=== PATIENT | male | born 1980 | race Caucasian/White ===

== ENCOUNTER 2022-10-15 02:17 | Emergency (ER) | payer BC, SELFPAY ==
[2022-10-15] VITALS (14 sets, daily range): BP systolic 114–155; BP diastolic 75–96; PULSE 82–103; RESP 16–20; TEMP 36.6; O2SAT 97–98; BMI 37.1
--- NOTE | 2022-10-15 02:39 | CRLHL7_ITS ---
For Patients: As a result of the Cures Act, medical imaging exams and procedure reports are released immediately into your electronic medical record. You may view this report before your referring provider. If you have questions, please contact your health care provider. INDICATION: Chest tightness TECHNIQUE: Chest radiograph 2 views COMPARISON: 06/20/2019 FINDINGS: Mediastinum: The mediastinum is normal in appearance. The heart silhouette is normal in size and morphology. Lung: Both lungs are unremarkable in appearance. Both apices are partially excluded. No sign of pleural effusion seen. No pneumothorax is identified. Bone and Soft tissue: Unremarkable for age. IMPRESSION: 1. No acute cardiopulmonary disease is seen. Dictated by: Mathew Santiago MD @ 10/15/2022 03:15:30 (Electronically Signed)
[2022-10-15] MEDS: ASPIRIN 81 MG TAB.CHEW 162 MG PO (02:47)
[2022-10-15] MEDS: FAMOTIDINE 20 MG TABLET PO (02:48)
[2022-10-15 02:55] LABS: Basophils Absolute Auto 0.02 K/uL (0.00-0.30); Basophils Percent Auto 0.4 % (0.0-3.0); Eosinophils Percent Auto 2.1 % (0.0-7.0); Hematocrit 43.9 % (37.0-53.0); Hemoglobin* 14.9 gm/dL (13.5-17.5); Immature Granulocytes Abs Auto 0.05 K/uL (0.00-0.30); Immature Granulocytes Pct Auto 1.1 %; Lymphocytes Absolute Auto 1.82 K/uL (0.90-2.90); Lymphocytes Percent Auto 38.3 % (20-44); Mean Corpuscular HGB Conc 34 gm/dL (32-36); Mean Corpuscular Hemoglobin 27 pg (26-34); Mean Corpuscular Volume 79 fL (80-100); Monocytes Percent Auto 9.7 % (0.0-11.0); Neutrophils Percent Auto 48.4 % (42.0-72.0); Platelet Count* 119 K/uL (140-440); RDW Coefficient of Variation % 12.6 % (11.5-15.5); Red Blood Count 5.55 m/uL (4.30-5.90); White Blood Count* 4.75 K/uL (4.50-11.00)
[2022-10-15 03:03] LABS: Troponin, Point-of-Care* 0.06 ng/ml (0.01-0.04)
[2022-10-15 03:06] LABS: Slide Review Reflex No
[2022-10-15 03:07] LABS: Chloride* 103 mmol/L (96-114); Sodium* 138 mmol/L (135-149)
[2022-10-15 03:08] LABS: Potassium* 3.5 mmol/L (3.6-5.1)
[2022-10-15 03:10] LABS: Anion Gap 9 mEq/L (7-15); Carbon Dioxide* 26 mmol/L (20-32); Creatinine* 0.8 mg/dL (0.5-1.5); Est. Creatinine Clearance* 146.17; Estimated Glomerular Filt Rate 113 ml/min
[2022-10-15 03:11] LABS: Blood Urea Nitrogen* 14 mg/dL (5-24); Calcium* 8.7 mg/dL (8.4-10.6); Glucose* 229 mg/dL (60-115)
[2022-10-15 03:15] LABS: C Reactive Protein* 0.7 mg/dL (0.5-1.0)
[2022-10-15 03:16] LABS: D Dimer Quantitative* 0.44 ug/ml (0.00-0.50)
--- NOTE | 2022-10-15 03:19 | ED_ITS ---
HPI - General Adult General Chief complaint: Chest Pain Stated complaint: Chest Feels tight Time Seen by Provider: 10/15/22 02:30 Source: patient Mode of arrival: ambulatory Limitations: no limitations History of Present Illness HPI narrative: 41-year-old male presents the emergency department with a 2 week history of intermittent chest tightness. Accompanied by a slight sensation of shortness of breath, sometimes happens at rest, sometimes more on exertion. Seems to be getting more frequent and intense over the last 2 weeks. No trauma or injury. Originally noticed it when he was vacationing at a cabin/like vacation with his family in [place] a couple of weeks ago. He now notices that while playing with his kids, worse when taking a deep breath, feels like he cannot catch his breath. Tonight, he woke up about 60-90 minutes prior to arrival with feeling of chest tightness accompanied by a feeling that he could not take a full deep breath. No palpitations, racing heart or radiation. No swelling in his legs, no history of DVT. He reports that he was evaluated for something similar about a year ago, sounds like the workup was normal. He believes he has even had a stress test but does not remember necessarily when. It may have only been a year ago but it could have been longer, these records are not through our health system. He does have a family history of heart disease in both parents around age 60. No fevers or recent acute illness. No use of blood thinners. He his other risk factors for heart disease include diabetes. He does take a statin. No history of hypertension. Has not tried any home remedies or interventions to help with his symptoms. Past medical history notable for type 2 diabetes, [id number]. Allergies are to Trulicity and sulfas. Sound like the Trulicity was an intolerance. Nonsmoker. Family history noted as above. Medications Jardiance, metformin, glipizide. ROS notable for the respiratory, cardiac in generalized symptoms as described above, otherwise denies times 12 systems. Related Data Home Medications Medication Instructions Recorded Confirmed empagliflozin 10 mg tablet 10 mg PO DAILY 10/15/22 10/15/22 (Jardiance) glipizide 10 mg tablet, extended 10 mg PO BID 10/15/22 10/15/22 release 24 hr metformin 1,000 mg tablet 1,000 mg PO BID 10/15/22 10/15/22 Allergies Allergy/AdvReac Type Severity Reaction Status Date / Time dulaglutide [From [facility]] AdvReac sulfa burps Verified 10/15/22 03:37 Sulfa (Sulfonamide AdvReac Verified 10/15/22 03:37 Antibiotics) [facility] Medical History (Updated 10/15/22 @ 05:20 by Steph Berumen MD) Pedal edema ?R60.0 - Localized edema (ICD-10) SHYANNE (obstructive sleep apnea) ?G47.33 - Obstructive sleep apnea (adult) (pediatric) (ICD-10) Anxiety and depression ?F41.9 - Anxiety disorder, unspecified (ICD-10) ?F32.A - Depression, unspecified (ICD-10) High triglycerides ?E78.1 - Pure hyperglyceridemia (ICD-10) Diabetes ?E11.9 - Type 2 diabetes mellitus without complications (ICD-10) Surgical History (Updated 10/15/22 @ 03:39 by Clementina Simental RN) History of tonsillectomy and adenoidectomy ?Z90.89 - Acquired absence of other organs (ICD-10) Hx of appendectomy ?Z90.49 - Acquired absence of other specified parts of digestive tract (ICD- 10) Social History Smoking Status: Never smoker Do you use any of these nicotine containing products: None How often do you have a drink containing alcohol: never AUDIT-C Alcohol total score: 0 Non-prescribed substance use: denies use Exam Const: Vital Signs, click to edit/add: Vital Signs - 24 hr 10/15/22 02:23 10/15/22 02:55 10/15/22 03:36 Temperature 97.8 F Pulse Rate 102 H Pulse Rate [Left P ulse Oximeter] 103 H Respiratory Rate 20 16 Blood Pressure 135/82 126/82 Blood Pressure [Ri ght Upper Arm] 155/95 H Pulse Oximetry 98 98 98 Oxygen Delivery Me thod Room Air 10/15/22 03:52 10/15/22 03:57 10/15/22 04:02 Temperature Pulse Rate 101 H Pulse Rate [Left P ulse Oximeter] Respiratory Rate 16 Blood Pressure 120/81 128/84 124/78 Blood Pressure [Ri ght Upper Arm] Pulse Oximetry Oxygen Delivery Me thod 10/15/22 04:07 10/15/22 04:11 10/15/22 04:17 Temperature Pulse Rate 82 84 Pulse Rate [Left P ulse Oximeter] Respiratory Rate 16 Blood Pressure 119/79 120/77 122/75 Blood Pressure [Ri ght Upper Arm] Pulse Oximetry Oxygen Delivery Me thod 10/15/22 04:22 10/15/22 04:27 10/15/22 04:41 Temperature Pulse Rate 82 86 89 Pulse Rate [Left P ulse Oximeter] Respiratory Rate 16 Blood Pressure 120/78 114/96 H 118/82 Blood Pressure [Ri ght Upper Arm] Pulse Oximetry 98 Oxygen Delivery Me thod Common normals: no apparent distress General appearance: cooperative, comfortable and well kempt Other: Good historian. HENMT: Common normals: normocephalic Head and scalp: normocephalic Face and sinus: normal facial exam Mouth: oral and palatal mucosa normal Throat: posterior oropharynx normal Eye: Common normals: conjunctivae normal Conjunctiva: conjunctiva(e) normal Neck & C-Spine: Common normals: full ROM and no lymphadenopathy Resp: Common normals: normal respiratory effort, no use of accessory muscles and clear to auscultation bilaterally Effort & inspection: able to speak in complete sentences Auscultation: clear to auscultation bilaterally Cardio: Common normals: regular rate, regular rhythm, S1 normal heart sound, S2 normal heart sound and no murmurs Rate: regular rate Rhythm: regular rhythm Heart sounds: S1 normal and S2 normal GI: Common normals: Normal to inspection, nondistended, normoactive bowel sounds present, soft to palpation, non-tender, no hepatosplenomegaly and no masses Palpation: soft and no hepatosplenomegaly Extremity: Common normals: normal to inspection, full ROM, normal capillary refill and no pedal edema Neuro: Speech: speech normal Gait (neuro): normal gait Motor exam: strength 5/5 throughout and no movement abnormalities noted Psych: Appearance: well kempt Attitude: engaged Activity/motor behavior: appropriate eye contact Mood and affect: euthymic mood Insight: insight good Judgement: judgment good Skin: Common normals: no rashes or lesions noted General skin exam: no rashes or lesions noted Course Course Hospital Course: Differential diagnosis including pulmonary embolism, acute coronary syndrome, arrhythmia, musculoskeletal etiology, gastric reflux, among others. Recommend troponin, chest x-ray, basic labs, D-dimer, aspirin and trial of famotidine. If this is not successful, consider trial of nitroglycerin. Anticipate repeat troponin at 90 minutes with repeat EKG. High risk for cardiac disease due to family history, diabetes and hyperlipidemia. Reevaluation(s) Time of Reevaluation #1: 03:47 Reevaluation #1: Pain stable, no improvement on famotidine an aspirin. Counseled on results of initial EKG, chest x-ray and labs. Indeterminate troponin worrisome in the set ting of his risk factors and the fact that there really is no other underlying explanation like pulmonary embolism, kidney disease, etc.. Await repeat troponin and performed trial of nitroglycerin challenge to see if this improves his symptoms. Time of Reevaluation #2: 04:33 Reevaluation #2: Repeat EKGs performed with normal sinus rhythm rate of 85. Still no ischemic changes. Normal axis. Good R-wave progression, normal ST and T-waves. He did not get improvement of his symptoms of chest tightness with the use of the nitroglycerin. It did however give him a mild headache which is not unexpected. Time of Reevaluation #3: 05:20 Reevaluation #3: Repeat troponin is 0.05 which is essentially stable. I spoke with Dr. Castillo from cardiology, enquiring specifically if this patient should be referred for an outpatient angiogram or if he should have a repeat stress test. He agrees that based on the patient's risk factors and lack of EKG changes with borderline troponins, he is a good candidate for a stress test. I placed an order for this and advised the patient that he is welcome to schedule it through his primary care provider if this is preferred as well. Exercise nuclear type stress test recommended. Patient was counseled on alarm symptoms that would warrant repeat ED presentation. I have encouraged him to take an aspirin 81 mg once daily up until the stress test. No heavy exertion until after the stress test but typical activities of daily living are of course encouraged. Continue all other medications as prescribed. He verbalizes understanding and agreement Vital Signs Vital signs: Initial Vital Signs Temperature 97.8 F 10/15/22 02:23 Temperature Source Temporal Artery Scan 10/15/22 02:23 Pulse Rate 103 H 10/15/22 02:23 Respiratory Rate 20 10/15/22 02:23 Blood Pressure 155/95 H 08/30/23 02:23 Blood Pressure Mean 115 H 10/15/22 02:23 Blood Pressure Position Sitting 10/15/22 02:23 Pulse Oximetry 98 10/15/22 02:23 Oxygen Delivery Method Room Air 10/15/22 02:23 Vital Signs Temperature 97.8 F 10/15/22 02:23 Pulse Rate 103 H 10/15/22 02:23 Respiratory Rate 20 10/15/22 02:23 Blood Pressure 155/95 H 10/15/22 02:23 Pulse Oximetry 98 10/15/22 02:23 Oxygen Delivery Method Room Air 10/15/22 02:23 Temperature 97.8 F 10/15/22 02:23 Pulse Rate 89 10/15/22 04:41 Respiratory Rate 16 10/15/22 04:41 Blood Pressure 118/82 10/15/22 04:41 Pulse Oximetry 98 10/15/22 04:41 Oxygen Delivery Method Room Air 10/15/22 02:23 Medical Decision Making Lab Data Lab results reviewed: Yes I reviewed the patient's lab results Lab results narrative: Mild troponin elevation of undetermined significance. D-dimer and BNP reassuring. Normal electrolytes, kidney function. No signs of infection or dehydration. Labs: Lab Results 10/15/22 10/15/22 Range/Units 02:48 04:35 WBC 4.75 (4.50-11.00) K/uL RBC 5.55 (4.30-5.90) m/uL Hgb 14.9 (13.5-17.5) gm/dL Hct 43.9 (37.0-53.0) % MCV 79 L (80-100) fL MCH 27 (26-34) pg MCHC 34 (32-36) gm/dL RDW Coeff of Charlie 12.6 (11.5-15.5) % Plt Count 119 L (140-440) K/uL Neut % (Auto) 48.4 (42.0-72.0) % Lymph % (Auto) 38.3 (20-44) % [place] % (Auto) 9.7 (0.0-11.0) % Eos % (Auto) 2.1 (0.0-7.0) % Baso % (Auto) 0.4 (0.0-3.0) % Neut # (Auto) 2.30 (1.7-7.0) K/uL Lymph # (Auto) 1.82 (0.90-2.90) K/uL [place] # (Auto) 0.50 (0.00-0.90) K/UL Eos # (Auto) 0.10 (0.00-0.50) K/uL Baso # (Auto) 0.02 (0.00-0.30) K/uL Abs Immat Gran (auto) 0.05 (0.00-0.30) K/uL Imm/Tot Granulo (auto) 1.1 % D-Dimer Quant (PE/DVT) 0.44 (0.00-0.50) ug/ml Sodium 138 (135-149) mmol/L Potassium 3.5 L (3.6-5.1) mmol/L Chloride 103 (96-114) mmol/L Carbon Dioxide 26 (20-32) mmol/L Anion Gap 9 (7-15) mEq/L BUN 14 (5-24) mg/dL Creatinine 0.8 (0.5-1.5) mg/dL Estimated Creat Clear 146.17 Estimated GFR 113 ml/min Glucose 229 H (60-115) mg/dL Calcium 8.7 (8.4-10.6) mg/dL Troponin I 0.06 H* (0.01-0.04) ng/mL C-Reactive Protein 0.7 (0.5-1.0) mg/dL NT-Pro-B Natriuret Pep < 20 pg/mL POC Troponin I 0.06 H 0.05 H (0.01-0.04) ng/ml Imaging Data Chest x-ray: Attestation: I have reviewed the pertinent imaging results. My impression: Normal chest x-ray Radiologist's impression: IMPRESSION: 1. No acute cardiopulmonary disease is seen. ECG Data Attestation: I personally reviewed and interpreted this ECG as follows: Prior ECG tracings: not available for review Interpretation: Normal sinus rhythm, rate 100. There are a few PVCs. Overall has good R-wave progression, no ST or T-wave abnormalities, essentially normal EKG. Discharge Plan Discharge Clinical Impression: Chest pain Patient Disposition: Home, Self-Care Condition: Stable Instructions: Chest Pain (DC), Stress Echocardiogram (DC) Additional Instructions: As we discussed, your blood work, EKG, x-ray and heart monitors do not show any signs of a heart attack today. This is great news. There are also no signs of a blood clot, kidney disease, electrolyte abnormality or infection. Your blood tests do show some very slight abnormalities with the heart that could be related to the start of some gradual narrowing of the arteries that feed the heart. Often, we will see these changes long before an actual heart attack. These findings mean that we need more information. The car stereo installer and I discussed your case and he agrees that we should proceed with a new stress test. I have placed an order for this and you will be contacted to schedule this at your convenience. If it is better for your schedule, insurance or your primary care provider preference, your welcome to have your primary care provider submitted order to have this done within their health system instead. It would be ideal to have the stress test performed within the next couple of weeks so that we can get to the bottom of your symptoms. I would like for you to start taking an aspirin 81 mg once daily for the next couple of weeks. You will continue to take your other medications as prescribed. They will give you special instructions on avoiding caffeine and other requirements for the stress test. The results will need to be sent to her primary care provider as the emergency room cannot follow up on the results. In the meantime if you have significant worsening of your symptoms, come back to the emergency department. I would avoid strenuous exercise until after the stress test but light, typical activities of daily living and errands are acceptable. Activity Level: Light activity Discharge Diet: Regular Prescriptions: No Action glipizide 10 mg tablet extended release 24hr 10 mg PO BID metformin 1,000 mg tablet 1,000 mg PO BID Jardiance 10 mg tablet 10 mg PO DAILY Follow Up/Referrals: Mario Ding MD [Primary Care Provider] - Stand Alone Forms: iPling Info Instructions
[2022-10-15 03:22] LABS: NT Pro B Type NatriureticPept* < 20 pg/mL
[2022-10-15 03:25] LABS: Troponin I* 0.06 ng/mL (0.01-0.04)
[2022-10-15] MEDS: NITROGLYCERIN 0.4 MG TAB.SUBL SUBLINGUAL (03:47)
--- NOTE | 2022-10-15 04:13 | ED.NURSE ---
pt denies pain, states chest pressure. post nitro pt states headache, no relief or change in chest pressure.
[2022-10-15 04:49] LABS: Troponin, Point-of-Care* 0.05 ng/ml (0.01-0.04)
== END 2022-10-15 05:28 | disposition home or self-care (01) ==
PROVIDERS: Emergency Provider Family Medicine; PCP Family Medicine
DX: R07.9 Chest pain, unspecified (principal)
CPT/HCPCS: 36415; 71046; 80048; 83880; 84484; 85025; 85379; 86140; 93005; 99284; 99285; A9270